=== PATIENT | male | born 1930 | race Caucasian/White ===

== ENCOUNTER 2018-01-17 21:58 | Emergency (ER) | payer SELFPAY ==
[~2018-01-17] VITALS: Ht 157.5 cm; Wt 64.0 kg
[~2018-01-17 21:58] MED LIST: ASPI81TA39 PO
[2018-01-18] MEDS ORDERED: PERTUSS(ACELL),DIPH,TET VAC/PF 0.5 ML VIAL IM ONE (00:15)
[2018-01-18] MEDS ORDERED: LIDOCAINE HCL 1% 10 ML VIAL INJ ONE (00:15)
[2018-01-18] MEDS ORDERED: POVIDONE-IODINE 10% 15 ML SOLUTION UD TP ONE (00:45)
[2018-01-18 02:43] VITALS: BP 119/72
[2018-01-18] MEDS ORDERED: BACITRACIN 0.9 GM PACKET OINTMENT TP ONE (02:45)
== END 2018-01-18 02:53 | disposition home or self-care (01) ==
LOC: EMS 22:00
DX: S61.011A Laceration without foreign body of right thumb without damage to nail, initial encounter (principal); Z79.82 Long term (current) use of aspirin; W45.8XXA Other foreign body or object entering through skin, initial encounter; Y93.89 Activity, other specified; Y92.89 Other specified places as the place of occurrence of the external cause; Y99.8 Other external cause status
CPT/HCPCS: 12002; 73130; 90471; 90715; 99284; J3490